=== PATIENT | female | born 1955 | race Caucasian/White ===

== ENCOUNTER 2018-11-18 11:43 | Inpatient (IN) | payer OTHER ==
[2018-11-18 11:55] VITALS: BMI 26.6
[2018-11-18] MEDS ORDERED: SODIUM CHLORIDE 1,000 ML IV SCH (12:15)
--- NOTE | 2018-11-18 12:53 | PDOC ---
Documentation entered by Radha Tsang SCRIBE, acting as scribe for Dario Luna MD. Dario Luna MD: This documentation has been prepared by the scribeSharan Natalie, SCRIBE, under my direction and personally reviewed by me in its entirety. I confirm that the documentation accurately reflects all work, treatment, procedures, and medical decision making performed by me. History of Present Illness - General Chief Complaint: CVA/TIA Stated Complaint: LT SIDE WEAKNESS Time Seen by Provider: 11/18/18 12:02 History Source: Patient, Family Exam Limitations: No Limitations - History of Present Illness Initial Comments: 11/18/18 12:11 The patient is a 63-year-old female, with a past medical history of HTN, HLD, DM , CVA (2003, 2012), who presents to the ED with more than 24 hours of LT arm numbness and weakness with worsening LLE weakness. The patient also endorses a headache that began last night. She states that the numbness and weakness of her LT arm began before the headache. The patient denies any vision changes, dizziness, or lightheadedness. Denies any chest pain or shortness of breath. Allergies: NKA Social History: Patient is visiting from [place] - she arrived here on Friday 11/10 and is staying with her niece. Surgical History: Cholecystectomy. Past History - Past Medical History Allergies/Adverse Reactions: Allergies Allergy/AdvReac Type Severity Reaction Status Date / Time No Known Allergies Allergy Verified 11/18/18 11:51 Home Medications: Ambulatory Orders Aspirin [ASA -] 81 mg PO DAILY 11/18/18 Atorvastatin Ca [Lipitor] 20 mg PO HS 11/18/18 Lisinopril [Prinivil] 20 mg PO DAILY 11/18/18 metFORMIN HCL [Metformin HCl ER] 750 mg PO BID 11/18/18 CVA: Yes (2012) COPD: No Diabetes: Yes HTN: Yes Hypercholesterolemia: Yes - Surgical History Cholecystectomy: Yes - Immunization History Immunization Up to Date: Yes - Suicide/Smoking/Psychosocial Hx Smoking History: Current every day smoker Number of Cigarettes Smoked Daily: 20 Information on smoking cessation initiated: No Hx Alcohol Use: No Drug/Substance Use Hx: No Review of Systems - Review of Systems Able to Perform ROS?: Yes Comments:: 11/18/18 12:17 CONSTITUTIONAL: No fever, no chills, no fatigue EYES: No visual changes ENT: No ear pain, no sore throat CARDIOVASCULAR: No chest pain, no palpitations RESPIRATORY: No cough, no SOB GI: No abdominal pain, no nausea, no vomiting, no constipation, no diarrhea GENITOURINARY: No dysuria, no frequency, no hematuria MUSKULOSKELETAL: No back pain, no joint pain, no myalgias SKIN: No rash NEURO: (+)Headache, LT arm numbness/weakness, worsening LLE weakness. *Physical Exam - Vital Signs Last Vital Signs Temp Pulse Resp BP Pulse Ox 98.2 F 84 16 160/63 99 11/18/18 11:50 11/18/18 11:50 11/18/18 11:50 11/18/18 11:50 11/18/18 11:50 - Physical Exam Comments: 11/18/18 12:18 CONSTITUTIONAL: Well-appearing; well-nourished; in no apparent distress HEAD: Normocephalic; atraumatic EYES: PERRL; EOM intact ENMT: +minimal left lower facial asymmetry with flattening of the nasolabial fold; normal oropharynx NECK: Supple; non-tender; no cervical lymphadenopathy CARD: Normal S1, S2; no murmurs, rubs, or gallops RESP: Normal chest excursion with respiration; breath sounds clear and equal bilaterally; no wheezes, rhonchi, or rales ABD: Soft, non-distended; non-tender; no palpable organomegaly, no palpable hernias EXT: Normal ROM in all four extremities; non-tender to palpation; distal pulses intact SKIN: Warm, dry, no rash NEURO: cranial nerves II through XII are grossly intact(with the exception of cranial nerve #7); Motor: Right upper extremity- 5/5; right lower extremity 5/5 ; left upper extremity 4/5; left lower extremity 5/5; positive Babinski on the left; 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; wrist extension significantly decreased on the left; no pronation drift; patient ambulates with a slight left lower extremity limp; NIH Stroke Scale - Last Known Well Date/Time & Onset Date Last Known Well: 11/17/18 Time Last Known Well: 11:00 - Initial Evaluation Level of consciousness: Alert Ask patient the month and their age: Answers both correctly Ask patient to open & close eyes; make fist and let go: Obeys both correctly Best gaze (horizontal eye movement): Normal Visual field testing: Partial hemianopia Facial paresis (Show teeth/raise eyebrows/close eyes tight): Minor paralysis ( flattened nasolabial fold, asymmetry on smiling) Motor Function: Left Arm: Some effort against gravity Motor Function: Right Arm: Normal (extends arm 90 (or 45) degrees for 10 seconds without drift Motor Function: Left Leg: Drift Motor Function: Right Leg: Normal (extends leg 30 degrees for 5 seconds without drift) Limb Ataxia: No ataxia Sensory(Use pinprick test arms,legs,trunk,face/side to side): Mild to moderate decrease in sensation Best language (Describe picture, name items, read sentences): No Aphasia Dysarthria (read several words): Normal articulation Extinction and Inattention: Profound sherice-inattention or extinction to more than one modality - Total Score NIH Stroke Scale Score: 8 tPA Exclusion Checklist 0-3hr - Time Elapsed Date last known well: 11/17/18 Time last known well: 11:00 Elaspsed time: 1 Day(s) and 3 Hour(s) and 44 Minutes - Thrombolytic Therapy Candidate Is the patient eligible for Thrombolytic Therapy?: No - Exclusion Criteria 0-3hr SBP greater than 185 or DBP greater than 110mmHg despite tx: No Recent IC/spinal surgery,head trauma or stroke w/in last 3mo: No Hx of previous IC hemorrhage, IC neoplasm, AVM or aneurysm: No Active internal bleeding: No Blding diathesis(low plt ct, inc PTT,INR>1.7 or use of NOAC): No Symptoms suggest subarachnoid hemorrhage: No CT demonstrates multilobar infarct(>1/3 cerebral hemiphere): No Arterial puncture at noncompressible site in previous 7 days: No Blood glucose concentration less than 50mg/dL (2.7mmol/L): No - Relative Exclusion Criteria 0-3h Life expectancy <1yr/severe co-morbid illness/ROD 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 on admit: No : No Patient/family refused: No Rapid improvement: No Stroke severity too mild: No Recent acute MD (w/in previous 3 months): No Seizure at onset with postictal residual neuro impairments: No Major surgery or serious trauma w/in previous 14 days: No Recent GI or hemorrhage (w/in previous 21 days): No - Ineligibility reason(s) Reasons No tPA given: Outside of window - delayed arrival Critical Care Time/MDM Note - Medical Decision Making Note: 11/18/18 13:23 Patient is a 63-year-old female with history of hypertension, diabetes, previous CVAs, on aspirin who presents to the ER with weakness of the left upper extremity as well as numbness the left upper extremity and worsening weakness of the left lower extremity for 25 hours since the onset of symptoms. Patient's NIH stroke scale is noted to be 8. Patient is not a candidate for TPA nor thrombectomy given the onset of symptoms of greater than [address] of head shows significant encephalomalacia of right parietal lobe and dialation of the right lateral ventriclw. given the patient has failed aspirin therapy, we'll consult neurology and we'll consider Aggrenox. Will admit to stroke. 11/18/18 13:38 case discussed with neurology PA. Recommends lowering patient's blood pressure at this time. We'll administer Lopressor-5 mg IV push over 5 minutes.Will admit to stroke unit. *DC/Admit/Observation/Transfer Diagnosis at time of Disposition: Cerebrovascular accident (CVA) Qualifiers: CVA mechanism: unspecified Qualified Code(s): I63.9 - Cerebral infarction, unspecified - Discharge Dispostion Condition at time of disposition: Fair Decision to Admit order: Yes - Referrals - Patient Instructions - Post Discharge Activity
[2018-11-18 13:10] LABS: BASO % 0.5 % (0-2.0); EOS % 1.4 % (0-4.5); HEMATOCRIT 40.5 % (32.4-45.2); HEMOGLOBIN 13.5 GM/dL (10.7-15.3); LYMPH % 30.1 % (8-40); MCH 28.6 pg (25.7-33.7); MCHC 33.3 g/dl (32.0-36.0); MEAN CELL VOLUME 85.9 fl (80-96); MEAN PLT VOLUME 10.4 fl (7.5-11.1); MONO % 9.2 % (3.8-10.2); NEUT % 58.8 % (42.8-82.8); PLATELET COUNT 191 K/MM3 (134-434); RBC 4.72 M/mm3 (3.60-5.2); WHITE BLOOD COUNT 10.8 K/mm3 (4.0-10.0)
[2018-11-18 13:22] LABS: PROTHROMBIN TIME (PATIENT) 11.8 SEC (9.7-13.0)
[2018-11-18] MEDS ORDERED: METOPROLOL TARTRATE 5 MG/5 ML VIAL IVPUSH ONE (13:34)
[2018-11-18 13:38] LABS: ALBUMIN 3.6 g/dl (3.4-5.0); ALK PHOS 130 U/L (45-117); ANION GAP 6 MMOL/L (8-16); BILIRUBIN,TOTAL 0.3 mg/dL (0.2-1); BLOOD UREA NITROGEN 14.3 mg/dL (7-18); CALCIUM 9.2 mg/dL (8.5-10.1); CHLORIDE 108 mmol/L (98-107); CHOLESTEROL 174 mg/dL (50-200); CO2 24 mmol/L (21-32); CREATININE 1.1 mg/dL (0.55-1.3); HDL CHOLESTEROL 35 mg/dL (40-60); POTASSIUM 4.2 mmol/L (3.5-5.1); SGOT/AST 12 U/L (15-37); SGPT/ALT 24 U/L (13-61); SODIUM 138 mmol/L (136-145); TOT PROT 7.2 g/dl (6.4-8.2); TRIGLYCERIDES 229 mg/dL (0-150)
[2018-11-18] MEDS ORDERED: METOPROLOL TARTRATE 5 MG/5 ML VIAL ONE (13:41)
[2018-11-18 13:47] LABS: GLUCOSE,RANDOM 370 mg/dL (74-106)
[2018-11-18] MEDS ORDERED: INSULIN REGULAR HUMAN 100 UNITS/ML *VIAL SQ ONE (13:55)
[2018-11-18] MEDS ORDERED: ASPIRIN/DIPYRIDAMOLE 25 MG/200 MG CAPSULE (FP) PO ONE (14:44)
--- NOTE | 2018-11-18 15:08 | EKG ---
Test Reason : Blood Pressure : / mmHG Vent. Rate : 078 BPM Atrial Rate : 078 BPM P-R Int : 142 ms QRS Dur : 090 ms QT Int : 388 ms P-R-T Axes : 052 053 035 degrees QTc Int : 442 ms POOR DATA QUALITY, INTERPRETATION MAY BE ADVERSELY AFFECTED NORMAL SINUS RHYTHM SEPTAL INFARCT , AGE UNDETERMINED ABNORMAL ECG NO PREVIOUS ECGS AVAILABLE Confirmed by GERMAN TORRES, ANSHUL ([id number]) on 11/18/2018 3:07:58 PM Referred By: Confirmed By:ANSHUL PORTER MD
[2018-11-18] MEDS ORDERED: INSULIN NPH 100 UNITS/ML *VIAL ONE (15:41)
--- NOTE | 2018-11-18 15:41 | CONSULT ---
Consult - text type - Consultation Consultation Note: NEUROLOGY CONSULT GREATLY APPRECIATED: Events reviewed and discussed with Dr. Luna. Marsha at bedside aiding in translation. This 63 yo RH single woman lives alone and is visiting her family from [place]. PMHX includes HTN, HLD, nicotine dependence, DM x 10 years, CVA 2002, '15 dx in [place]. Meds: ASA 81 mg, atorvastatin, lisinopril, metformin. Ambulates independently and performs all ADL's. Reports yesterday morning, experienced intermittent "weakness" and "electricity " of left hand with dull, R hemicranial headache. 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 She was then awoken @ 7AM with "disabling weakness" of the left hand as well as worsened headache with mild "dizziness" and phonophobia. She describes that this hand weakness has occurred with previous strokes, and was "most severe" in 2014. Pt admits she has not been "the same since my last stroke" in 2015 and has become more forgetful, at times forgetting to take her meds for days at a time. She and her family also note a change in her walking becoming "slower" and with one previous fall forward. Review of systems sig for increasing frequency of morning headaches since the stroke, occurring in AM and can last 1-2 times a week. She also notes chronic insomnia with neck, back pains and the left leg constantly "asleep", worse in the evening hours. Both are unrelieved with tylenol. Head CT (Reviewed): OLD right MCA infarct and old left frontal infarct with encephalomalacia, moderate atrophy and mild calcification of intracranial arteries. MRI /MR Angio (reviewed) confirms old Right MCA and left frontal infarcts with moderate, diffuse, subcortical and periventricular microvascular changes. No significant vascular stenoses or occlusions. EKG- normal sinus rhythm, age indeterminate septal infarct WBC= 10.8; MCV= 85.9; BS= 370; CK 31; TG= 229; TChol= 174; LDL= 120; HDL= 35. KAM: Cor reg. No bruit. Neck supple. No evidence of head trauma. NEURO: Awake, alert, responsive. [facility]. November 18, 2018. TRUMP. Can reverse. 2/3 recall @ 3 min. + glabella CNII-CNXII: EOM's full. Reduced blink to threat on L. No facial. Reduced rapid tongue. Gag ok. Motor: L pronator drift. Weak L grasp with isolated weakness L instrinsics 3/5 and APB 4-/5. 4-/5 L DF. Reflexes brisk throughout with cross adduction at knees and present AJs. L Babinski. Coordination: No FTN dystaxia. Sensation: Reduced vibration in toes, can feel pinch in all fours, however mislocalizes L arm pinch. Romberg +/- Gait: Slightly flexed, shuffling. Impression: Mod B/L cerebral dysfunction (Old B/L cerebral CVAs) R cerebral accentuation (Age indeterminate) possible new right CVA or partial seizure due to old CVA with Pop's paralysis. Migraine Headaches (complicated migraine?) Suggest: Maintain systolic BP <130s. Consider addition of Beta-Adeola for migraine prophylaxis (ie: Nadolol 40 mg qd). Continue ASA (81), statin and add clopidogrel for stroke prevention. (Aggrenox may worsen headaches) Observe for clinical improvement suggesting Pop's paralysis and determine baseline neurological status. Observe off AED's at this time. R/O acute CO and/or infection. Cardiology consult; telemetry bed; echocardiogram for possible cardioembolic source OOB to chair for meals. PT eval for gait safety with walker. Thank you very much, Miles Shanks MD
[2018-11-18 18:18] LABS: EPI CELLS 1.2 /HPF (0-5/HPF); HYALINE CASTS 1 /lpf (0-8); URINE APPEARANCE CLEAR; URINE BACTERIA 5306.3 /hpf (NEGATIVE); URINE BILIRUBIN NEGATIVE (NEGATIVE); URINE COLOR YELLOW; URINE GLUCOSE (UA) 3+ (NEGATIVE); URINE KETONE NEGATIVE (NEGATIVE); URINE LEUK ESTERASE NEGATIVE (NEGATIVE); URINE NITRITE POSITIVE (NEGATIVE); URINE PROTEIN NEGATIVE (NEGATIVE); URINE RBC 0 /hpf (0-4); URINE UROBILINOGEN 0.2 mg/dL (0.2-1.0); URINE WBC 4 /hpf (0-5)
--- NOTE | 2018-11-18 19:47 | HP ---
Admitting History and Physical - Primary Care Physician PCP: Marysol Gonzales - Admission History of Present Illness: 63-year-old female, with a past medical history of HTN, HLD, DM, CVA (2003, 2012 ), who presents to the ED with more than 24 hours of LT arm numbness and weakness with worsening LLE weakness. The patient also endorses a headache that began last night. She states that the numbness and weakness of her LT arm began before the headache. - Past Medical History Cardiovascular: Yes: HTN, Hyperlipdemia Endocrine: Yes: Diabetes Mellitus - Smoking History Smoking history: Current every day smoker Aproximately how many cigarettes per day: 20 - Alcohol/Substance Use Hx Alcohol Use: No Home Medications - Allergies Allergies/Adverse Reactions: Allergies Allergy/AdvReac Type Severity Reaction Status Date / Time No Known Allergies Allergy Verified 11/18/18 11:51 - Home Medications Home Medications: Ambulatory Orders Aspirin [ASA -] 81 mg PO DAILY 11/18/18 Atorvastatin Ca [Lipitor] 20 mg PO HS 11/18/18 Lisinopril [Prinivil] 20 mg PO DAILY 11/18/18 metFORMIN HCL [Metformin HCl ER] 750 mg PO BID 11/18/18 Clopidogrel Bisulfate [Plavix -] 75 mg PO DAILY #30 tablet 11/19/18 Physical Examination Vital Signs: Vital Signs Temperature 98.2 F 11/18/18 11:50 Pulse Rate 81 11/18/18 18:00 Respiratory Rate 22 H 11/18/18 18:00 Blood Pressure 132/74 11/18/18 18:00 O2 Sat by Pulse Oximetry (%) 98 11/18/18 18:00 Constitutional: Yes: No Distress HENT: Yes: Atraumatic Neck: Yes: Supple Cardiovascular: Yes: Regular Rate and Rhythm Respiratory: Yes: CTA Bilaterally Gastrointestinal: Yes: Normal Bowel Sounds Extremities: Yes: WNL Edema: No Neurological: Yes: Alert, Oriented ...Motor Strength: LUE (4/5) Labs: CBC, BMP 11/18/18 12:45 11/18/18 12:45 Imaging - Results Cat Scan: Report Reviewed Problem List - Problems (1) Cerebrovascular accident (CVA) Assessment/Plan: ct scan done mri/mra neuro consult neuro checks q6h Code(s): I63.9 - CEREBRAL INFARCTION, UNSPECIFIED Qualifiers: CVA mechanism: unspecified Qualified Code(s): I63.9 - Cerebral infarction, unspecified (2) Hyperlipidemia Assessment/Plan: on lipitor Code(s): E78.5 - HYPERLIPIDEMIA, UNSPECIFIED Qualifiers: Hyperlipidemia type: pure hypercholesterolemia Qualified Code(s): E78.00 - Pure hypercholesterolemia, unspecified; E78.0 - Pure hypercholesterolemia (3) Hypertension Assessment/Plan: on meds monitor Code(s): I10 - ESSENTIAL (PRIMARY) HYPERTENSION Qualifiers: Hypertension type: essential hypertension Qualified Code(s): I10 - Essential (primary) hypertension (4) Type 2 diabetes mellitus Assessment/Plan: bgms on metformin patient refusing insulin, does not like needles Code(s): E11.9 - TYPE 2 DIABETES MELLITUS WITHOUT COMPLICATIONS Qualifiers: Diabetes mellitus fpc insulin use: without exterminator termite use Assessment/Plan Laboratory Tests 11/18/18 11/18/18 11/18/18 12:45 12:45 12:45 WBC 10.8 H RBC 4.72 Hgb 13.5 Hct 40.5 MCV 85.9 MCH 28.6 MCHC 33.3 RDW 14.0 Plt Count 191 MPV 10.4 Absolute Neuts (auto) 6.3 Neutrophils % 58.8 Lymphocytes % 30.1 Monocytes % 9.2 Eosinophils % 1.4 Basophils % 0.5 Nucleated RBC % 0 PT with INR 11.80 INR 1.00 Sodium 138 Potassium 4.2 Chloride 108 H Carbon Dioxide 24 Anion Gap 6 L BUN 14.3 Creatinine 1.1 Est GFR (CKD-EPI)AfAm 62.75 Est GFR (CKD-EPI)NonAf 54.14 POC Glucometer Random Glucose 370 H* Calcium 9.2 Total Bilirubin 0.3 AST 12 L ALT 24 Alkaline Phosphatase 130 H Creatine Kinase 31 Troponin I < 0.02 Total Protein 7.2 Albumin 3.6 Triglycerides 229 H Cholesterol 174 Total LDL Cholesterol 120 H HDL Cholesterol 35 L Urine Color Urine Appearance Urine pH Ur Specific Willard Urine Protein Urine Glucose (UA) Urine Ketones Urine Blood Urine Nitrite Urine Bilirubin Urine Urobilinogen Ur Leukocyte Esterase Urine WBC (Auto) Urine RBC (Auto) Urine Casts (Auto) U Pathogenic Cast Auto U Epithel Cells (Auto) Urine Bacteria (Auto) Blood Type Antibody Screen 11/18/18 11/18/18 11/18/18 12:45 14:55 17:24 WBC RBC Hgb Hct MCV MCH MCHC RDW Plt Count MPV Absolute Neuts (auto) Neutrophils % Lymphocytes % Monocytes % Eosinophils % Basophils % Nucleated RBC % PT with INR INR Sodium Potassium Chloride Carbon Dioxide Anion Gap BUN Creatinine Est GFR (CKD-EPI)AfAm Est GFR (CKD-EPI)NonAf POC Glucometer 155 Random Glucose Calcium Total Bilirubin AST ALT Alkaline Phosphatase Creatine Kinase Troponin I Total Protein Albumin Triglycerides Cholesterol Total LDL Cholesterol HDL Cholesterol Urine Color Yellow Urine Appearance Clear Urine pH 5.0 Ur Specific Willard 1.022 Urine Protein Negative Urine Glucose (UA) 3+ H Urine Ketones Negative Urine Blood Trace Urine Nitrite Positive H Urine Bilirubin Negative Urine Urobilinogen 0.2 Ur Leukocyte Esterase Negative Urine WBC (Auto) 4 Urine RBC (Auto) 0 Urine Casts (Auto) 1 U Pathogenic Cast Auto No Result Required. U Epithel Cells (Auto) 1.2 Urine Bacteria (Auto) 5306.3 Blood Type A POSITIVE Antibody Screen Negative Active Medications Generic Name Dose Route Start Last Admin Trade Name Freq PRN Reason Stop Dose Admin Sodium Chloride 1,000 mls @ 42 mls/hr 11/18/18 12:15 11/18/18 13:30 Normal Saline - IV 42 mls/hr ASDIR SHERRY Administration Active Medications Generic Name Dose Route Start Last Admin Trade Name Freq PRN Reason Stop Dose Admin Acetaminophen 650 mg 11/18/18 21:36 11/18/18 23:07 Tylenol - PO 650 mg Q6H PRN Administration FEVER Aspirin 81 mg 11/19/18 10:00 11/19/18 10:48 Asa - PO 81 mg DAILY SHERRY Administration Atorvastatin Calcium 20 mg 11/18/18 22:00 11/18/18 23:11 Lipitor - PO 20 mg HS SHERRY Administration Clopidogrel Bisulfate 75 mg 11/19/18 11:45 11/19/18 13:44 Plavix - PO 75 mg DAILY SHERRY Administration Heparin Sodium (Porcine) 5,000 unit 11/18/18 22:00 11/19/18 10:48 Heparin - SQ 5,000 unit BID SHERRY Administration Lisinopril 20 mg 11/19/18 10:00 11/19/18 10:48 Prinivil PO 20 mg DAILY SHERRY Administration Metformin HCl 750 mg 11/18/18 22:00 11/19/18 10:48 Glucophage Xr - PO 750 mg BID SHERRY Administration
[2018-11-18] MEDS ORDERED: PT OWN MED DRAWER 7, Y5N ONE ×2 (22:21→22:51)
[2018-11-18] MEDS: ACETAMINOPHEN 325 MG TABLET (FP) PO PRN (23:07)
[2018-11-18] MEDS: HEPARIN NA (PORCINE) 5,000 UNITS/ML 1ML VIAL SQ SCH (23:09)
[2018-11-18] MEDS: ATORVASTATIN CA 20 MG TABLET (FP) PO SCH (23:11)
[2018-11-19] MEDS ORDERED: PT OWN MED DRAWER 7, Y5N ONE ×2 (10:39→21:21)
[2018-11-19] MEDS: LISINOPRIL 20 MG TABLET (FP) PO SCH (10:48)
[2018-11-19] MEDS: ASPIRIN 81 MG CHEWABLE TABLETS PO SCH (10:48)
[2018-11-19] MEDS: HEPARIN NA (PORCINE) 5,000 UNITS/ML 1ML VIAL SQ SCH ×2 (10:48→21:47)
--- NOTE | 2018-11-19 11:29 | CON.CARD ---
Consult Consult Specialty:: Cardiology Referred by:: Marysol Gonzales MD Reason for Consultation:: Stroke - History of Present Illness Chief Complaint: Stroke History of Present Illness: The patient is a 63-year-old female, with a past medical history of HTN, HLD, DM , CVA (2003, 2012), who presents to the ED with more than 24 hours of left arm numbness, parasthesias and weakness with worsening LLE weakness associated with headache. She states that the numbness and weakness of her LT arm began before the headache. The patient denies any vision changes, dizziness, or lightheadedness. Denies any chest pain or shortness of breath. PMHX includes HTN, HLD, nicotine dependence, DM x 10 years, CVA 2002, dx in [place]. Meds: ASA 81 mg, atorvastatin, lisinopril, metformin. - History Source History Provided By: Medical Record Limitations to Obtaining History: Language Barrier - Past Medical History Cardio/Vascular: Yes: HTN, Hyperlipdemia Endocrine: Yes: Diabetes Mellitus - Alcohol/Substance Use Hx Alcohol Use: No - Smoking History Smoking history: Current every day smoker Have you smoked in the past 12 months: Yes Aproximately how many cigarettes per day: 20 Home Medications - Allergies Allergies/Adverse Reactions: Allergies Allergy/AdvReac Type Severity Reaction Status Date / Time No Known Allergies Allergy Verified 11/18/18 11:51 - Home Medications Home Medications: Ambulatory Orders Aspirin [ASA -] 81 mg PO DAILY 11/18/18 Atorvastatin Ca [Lipitor] 20 mg PO HS 11/18/18 Lisinopril [Prinivil] 20 mg PO DAILY 11/18/18 metFORMIN HCL [Metformin HCl ER] 750 mg PO BID 11/18/18 Review of Systems - Review of Systems Neurological: reports: Parasthesia (LUE), Weakness (LUE) Vital Signs: Vital Signs Temperature 97.7 F 11/19/18 10:55 Pulse Rate 67 11/19/18 10:55 Respiratory Rate 20 11/19/18 10:55 Blood Pressure 117/53 L 11/19/18 10:55 O2 Sat by Pulse Oximetry (%) 95 11/19/18 00:00 Constitutional: Yes: No Distress, Calm Neck: Yes: Supple Respiratory: Yes: Regular, CTA Bilaterally Gastrointestinal: Yes: Normal Bowel Sounds, Soft Cardiovascular: Yes: Regular Rate and Rhythm JVD: No Carotid Bruit: No Heart Sounds: Yes: S1, S2 Edema: No - Other Data Labs, Other Data: CBC, BMP 11/18/18 12:45 11/18/18 12:45 INR, PTT INR 1.00 (0.83-1.09) 11/18/18 12:45 Troponin, BNP 11/18/18 11/18/18 12:45 22:00 Troponin I < 0.02 < 0.02 Troponin, BNP 11/18/18 11/18/18 12:45 22:00 Troponin I < 0.02 < 0.02 NSR @ 78 Problem List - Problems (1) Hypertension Code(s): I10 - ESSENTIAL (PRIMARY) HYPERTENSION Qualifiers: Hypertension type: essential hypertension Qualified Code(s): I10 - Essential (primary) hypertension (2) Hyperlipidemia Code(s): E78.5 - HYPERLIPIDEMIA, UNSPECIFIED Qualifiers: Hyperlipidemia type: pure hypercholesterolemia Qualified Code(s): E78.00 - Pure hypercholesterolemia, unspecified; E78.0 - Pure hypercholesterolemia (3) Type 2 diabetes mellitus Code(s): E11.9 - TYPE 2 DIABETES MELLITUS WITHOUT COMPLICATIONS 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 Recurrent acute right multifocal CVA, h/o old right MCA stroke 2. Hypertension 3. Hyperlipidemia 4. Type 2 DM P:1. Continue ASA 81 qd, Plavix 75 qd, Lipitor 20 qhs, lisinopril 20 qd 2. desk monitor to r/o PAF, may benefit from prolonged arrhythmia monitoring if telemetry unrevealing 3. F/u echocardiogram 4. PT eval for gait safety with walker 5. Thank you for consultatove opportunity
[2018-11-19] MEDS: CLOPIDOGREL BISULFATE 75 MG TABLET (FP) PO SCH (13:44)
--- NOTE | 2018-11-19 17:33 | DS ---
Physical Examination Vital Signs: Vital Signs Temperature 97.5 F L 11/19/18 13:16 Pulse Rate 80 11/19/18 13:16 Respiratory Rate 14 11/19/18 13:16 Blood Pressure 115/68 11/19/18 13:16 O2 Sat by Pulse Oximetry (%) 96 11/19/18 08:00 Constitutional: Yes: No Distress HENT: Yes: Atraumatic Neck: Yes: Supple Labs: CBC, BMP 11/18/18 12:45 11/18/18 12:45 Discharge Summary Reason For Visit: CVA Current Active Problems Cerebrovascular accident (CVA) (Acute) Hyperlipidemia (Acute) Hypertension (Acute) Type 2 diabetes mellitus (Acute) Condition: Fair - Instructions Diet, Activity, Other Instructions: see neurology 1 week for follow up Referrals: Miles Shanks MD [Staff Physician] - - Home Medications Comprehensive Discharge Medication List: Ambulatory Orders Aspirin [ASA -] 81 mg PO DAILY 11/18/18 Atorvastatin Ca [Lipitor] 20 mg PO HS 11/18/18 Lisinopril [Prinivil] 20 mg PO DAILY 11/18/18 metFORMIN HCL [Metformin HCl ER] 750 mg PO BID 11/18/18 dc home fu neuro and pmd
--- NOTE | 2018-11-19 19:31 | PN ---
Progress Note, Physician - Current Medication List Current Medications: Active Medications Acetaminophen (Tylenol -) 650 mg PO Q6H PRN PRN Reason: FEVER Last Admin: 11/18/18 23:07 Dose: 650 mg Aspirin (Asa -) 81 mg PO DAILY [facility] [place] Last Admin: 11/19/18 10:48 Dose: 81 mg Atorvastatin Calcium (Lipitor -) 20 mg PO HS [facility] [place] Last Admin: 11/18/18 23:11 Dose: 20 mg Clopidogrel Bisulfate (Plavix -) 75 mg PO DAILY [facility] [place] Last Admin: 11/19/18 13:44 Dose: 75 mg Heparin Sodium (Porcine) (Heparin -) 5,000 unit SQ BID [facility] [place] Last Admin: 11/19/18 10:48 Dose: 5,000 unit Lisinopril (Prinivil) 20 mg PO DAILY [facility] [place] Last Admin: 11/19/18 10:48 Dose: 20 mg Metformin HCl (Glucophage Xr -) 750 mg PO BID [facility] [place] Last Admin: 11/19/18 10:48 Dose: 750 mg - Objective Vital Signs: Vital Signs Temperature 98 F 11/19/18 17:46 Pulse Rate 67 11/19/18 17:46 Respiratory Rate 18 11/19/18 17:46 Blood Pressure 107/65 11/19/18 17:46 O2 Sat by Pulse Oximetry (%) 96 11/19/18 08:00 Constitutional: Yes: No Distress HENT: Yes: Atraumatic Neck: Yes: Supple Cardiovascular: Yes: Regular Rate and Rhythm Respiratory: Yes: CTA Bilaterally Gastrointestinal: Yes: Normal Bowel Sounds Extremities: Yes: WNL Edema: No Peripheral Pulses WNL: Yes Neurological: Yes: Alert, Oriented ...Motor Strength: LUE (4/5) Labs: CBC, BMP 11/18/18 12:45 11/18/18 12:45 INR, PTT INR 1.00 (0.83-1.09) 11/18/18 12:45 Problem List - Problems (1) Cerebrovascular accident (CVA) Assessment/Plan: ct scan done mri/mra...done report reviewed on plavix now Code(s): I63.9 - CEREBRAL INFARCTION, UNSPECIFIED Qualifiers: CVA mechanism: unspecified Qualified Code(s): I63.9 - Cerebral infarction, unspecified (2) Hyperlipidemia Assessment/Plan: on lipitor Code(s): E78.5 - HYPERLIPIDEMIA, UNSPECIFIED Qualifiers: Hyperlipidemia type: pure hypercholesterolemia Qualified Code(s): E78.00 - Pure hypercholesterolemia, unspecified; E78.0 - Pure hypercholesterolemia (3) Hypertension Assessment/Plan: on meds monitor Code(s): I10 - ESSENTIAL (PRIMARY) HYPERTENSION Qualifiers: Hypertension type: essential hypertension Qualified Code(s): I10 - Essential (primary) hypertension (4) Type 2 diabetes mellitus Assessment/Plan: bgms on metformin patient refusing insulin, does not like needles Code(s): E11.9 - TYPE 2 DIABETES MELLITUS WITHOUT COMPLICATIONS Qualifiers: Diabetes mellitus 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
[2018-11-19] MEDS: ATORVASTATIN CA 20 MG TABLET (FP) PO SCH (21:47)
[2018-11-19] MEDS: ACETAMINOPHEN 325 MG TABLET (FP) PO PRN (21:47)
[2018-11-20] MEDS ORDERED: PT OWN MED DRAWER 7, Y5N ONE ×2 (09:03→09:23)
[2018-11-20] MEDS: CLOPIDOGREL BISULFATE 75 MG TABLET (FP) PO SCH (09:12)
[2018-11-20] MEDS: ASPIRIN 81 MG CHEWABLE TABLETS PO SCH (09:12)
[2018-11-20] MEDS: HEPARIN NA (PORCINE) 5,000 UNITS/ML 1ML VIAL SQ SCH (09:13)
[2018-11-20] MEDS: LISINOPRIL 20 MG TABLET (FP) PO SCH (09:13)
--- NOTE | 2018-11-20 09:16 | PN ---
Progress Note, Physician History of Present Illness: Left arm numbness, parasthesias and weakness improving, no events on telemetry. - Current Medication List Current Medications: Active Medications Acetaminophen (Tylenol -) 650 mg PO Q6H PRN PRN Reason: FEVER Last Admin: 11/19/18 21:47 Dose: 650 mg Aspirin (Asa -) 81 mg PO DAILY [facility] Last Admin: 11/20/18 09:12 Dose: 81 mg Atorvastatin Calcium (Lipitor -) 20 mg PO HS [facility] Last Admin: 11/19/18 21:47 Dose: 20 mg Clopidogrel Bisulfate (Plavix -) 75 mg PO DAILY [facility] Last Admin: 11/20/18 09:12 Dose: 75 mg Heparin Sodium (Porcine) (Heparin -) 5,000 unit SQ BID [facility] Last Admin: 11/20/18 09:13 Dose: 5,000 unit Lisinopril (Prinivil) 20 mg PO DAILY [facility] Last Admin: 11/20/18 09:13 Dose: 20 mg Metformin HCl (Glucophage Xr -) 750 mg PO BID [facility] Last Admin: 11/20/18 09:13 Dose: 750 mg - Objective Vital Signs: Vital Signs Temperature 97.6 F 11/20/18 06:00 Pulse Rate 70 11/20/18 06:00 Respiratory Rate 18 11/20/18 06:00 Blood Pressure 115/68 11/20/18 06:00 O2 Sat by Pulse Oximetry (%) 98 11/19/18 21:00 Constitutional: Yes: No Distress, Calm Neck: Yes: Supple Cardiovascular: Yes: Regular Rate and Rhythm Respiratory: Yes: Regular, CTA Bilaterally Gastrointestinal: Yes: Normal Bowel Sounds, Soft Edema: No Labs: CBC, BMP 11/18/18 12:45 11/18/18 12:45 INR, PTT INR 1.00 (0.83-1.09) 11/18/18 12:45 - ....Imaging EKG: Report Reviewed (Tele: NSR no PAF) Problem List - Problems (1) Hypertension Code(s): I10 - ESSENTIAL (PRIMARY) HYPERTENSION Qualifiers: Hypertension type: essential hypertension Qualified Code(s): I10 - Essential (primary) hypertension (2) Hyperlipidemia Code(s): E78.5 - HYPERLIPIDEMIA, UNSPECIFIED Qualifiers: Hyperlipidemia type: pure hypercholesterolemia Qualified Code(s): E78.00 - Pure hypercholesterolemia, unspecified; E78.0 - Pure hypercholesterolemia (3) Type 2 diabetes mellitus Code(s): E11.9 - TYPE 2 DIABETES MELLITUS WITHOUT COMPLICATIONS Qualifiers: Diabetes mellitus retirement insulin use: 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 Recurrent acute right multifocal CVA, h/o old right MCA stroke 2. Hypertension 3. Hyperlipidemia 4. Type 2 DM not at goal control P:1. Continue ASA 81 qd, Plavix 75 qd, Lipitor 20 qhs, lisinopril 20 qd, optimize glycemic control 2. alarm security or surveillance monitor to r/o PAF, may benefit from prolonged arrhythmia monitoring if telemetry unrevealing 3. F/u echocardiogram, full TFTs 4. PT eval for gait safety with walker
--- NOTE | 2018-11-20 11:05 | CONSULT ---
Consult - text type - Consultation Consultation Note: NEUROLOGY PROGRESS: Events reviewed and discussed with nursing staff and patient's Granddaughter Chloé over phone. Granddaughter states she is planning to take grandmother home with her mom (pt' s daughter) as Pt. is alone in [place]. MRI results discussed with patient and granddaughter. Granddaughter notes grandmother has had some memory decline over past few months and requires more assistance. Chloé also confirms that the patient has walked "with a limp" ever since her prior stroke supporting baseline of hemiparesis. OMS studies reveal B12= 355; Non-reactive RPR; BUT TSH 0.22. TG 229 LDL 120 HDL 35 A1c=12.1% NEURO: Awake, alert, fluent. "[place]." November 20, 2018. TRUMP. difficulty with reversals. 2/3 recall @ 3 min. + glabella EOM's full with full [place]ois. Gag ok. Mild L pronation drift and hemiparesis. Decreased HUEY L > R. Improved grasps. Reflexes symmetric throughout. No FTN dystaxia Min reduced vibration toes. Romberg neg Sl flexed, wide based. Impression: Mod B/L cerebral dysfunction (Old B/L CVAs and extensive microvascular disease.) R cerebral accentuation (chronic)- transient worsening has improved c/w a small, new vascular event of partial seizure with Pop's paralysis. Back at baseline according to family. Suggest: Cont ASA, Plavix, statin Check FT3, FT4 Endocrinology consult for glycemic control and possible new hyperthyroidism emergency services dispatcher eval for home safety and possible FMLA Continue PT with walker for gait safety (Pt will need Rx for walker ). Observe off AED's for now. Pt is scheduled for out patient neuro f/u on Friday 11/24 and we will perform out patient EEG. Thank you very much, Miles Shanks MD
--- NOTE | 2018-11-20 12:44 | DS ---
Physical Examination Vital Signs: Vital Signs Temperature 97.6 F 11/20/18 06:00 Pulse Rate 70 11/20/18 06:00 Respiratory Rate 18 11/20/18 06:00 Blood Pressure 115/68 11/20/18 06:00 O2 Sat by Pulse Oximetry (%) 98 11/19/18 21:00 Constitutional: Yes: No Distress HENT: Yes: Atraumatic Neck: Yes: Supple Cardiovascular: Yes: Regular Rate and Rhythm Respiratory: Yes: CTA Bilaterally Gastrointestinal: Yes: Normal Bowel Sounds Extremities: Yes: WNL Neurological: Yes: Alert, Oriented Labs: CBC, BMP 11/18/18 12:45 11/18/18 12:45 Discharge Summary Reason For Visit: CVA Current Active Problems Cerebrovascular accident (CVA) (Acute) Hyperlipidemia (Acute) Hypertension (Acute) Type 2 diabetes mellitus (Acute) Condition: Fair - Instructions Diet, Activity, Other Instructions: see neurology 1 week for follow up see endocrine dr orta Referrals: Miles Shanks MD [Staff Physician] - Brianda Orta MD [Staff Physician] - - Home Medications Comprehensive Discharge Medication List: Ambulatory Orders Aspirin [ASA -] 81 mg PO DAILY 11/18/18 Atorvastatin Ca [Lipitor] 20 mg PO HS 11/18/18 Lisinopril [Prinivil] 20 mg PO DAILY 11/18/18 metFORMIN HCL [Metformin HCl ER] 750 mg PO BID 11/18/18 Clopidogrel Bisulfate [Plavix -] 75 mg PO DAILY #30 tablet 11/19/18 dc home fu neuro, pmd , endocrine as out patient
[2018-11-20 14:33] VITALS: BP 130/70; PULSE 83; TEMP 97.8
== END 2018-11-20 17:00 | disposition home or self-care (01) | DRG 65 ==
LOC: JER 11:43 → UNDOADMOB 14:45 → JERBED 14:45 → INTOOBSV 14:45 → J4S 18:26 → JERBED 18:26 → J4S 18:28 → JERBED 19:50 → J4S 19:50 → OBSVTOIN 11-19 16:34
PROVIDERS: ADMIT Internal Medicine; ATTEND Internal Medicine
DX: I63.9 Cerebral infarction, unspecified (principal); I69.351 Hemiplegia and hemiparesis following cerebral infarction affecting right dominant side; I10 Essential (primary) hypertension; E11.9 Type 2 diabetes mellitus without complications; E78.5 Hyperlipidemia, unspecified; F17.210 Nicotine dependence, cigarettes, uncomplicated; R29.708 NIHSS score 8
CPT/HCPCS: 36415; 70450-TC; 70544-TC; 70549-TC; 70551-TC; 80053; 81003; 82465; 82550; 82607; 82962; 83036; 83718; 83721; 84439; 84443; 84478; 84481; 84484; 85025; 85610; 85651; 86140; 86593; 86850; 86900; 86901; 93005; 93010; 93880-TC; 97116-GP; 97162-GP; 99285-25; A9579; G0378; J1644; J7030